=== PATIENT | female | born 1970 | race African-American/Black ===

== ENCOUNTER 2017-01-16 06:45 | Emergency (ER) | payer OTHER ==
[~2017-01-16] VITALS: Ht 167.6 cm; Wt 91.0 kg
[2017-01-16] MEDS ORDERED: KETOROLAC 30MG/ML VIAL IV STA (07:48)
[2017-01-16] MEDS ORDERED: SODIUM CHLORIDE 0.9% 1,000 ML IV ONE (07:48)
[2017-01-16 08:08] LABS: BASOPHILS % 0.2 % (0.0-2.0); HEMATOCRIT. 38.7 % (36.0-48.0); HEMOGLOBIN. 13.5 g/dL (12.0-16.0); LYMPHOCYTES % 8.1 % (20.0-50.0); MEAN CORPUSCULAR HEMOGLOBIN 29.9 pg (28.0-32.0); MEAN CORPUSCULAR VOLUME 85.6 fL (81.0-99.0); MEAN PLATELET VOLUME 7.3 fl (7.4-10.4); MONOCYTES % 4.4 % (2.0-8.0); NEUTROPHILS % 87.3 % (40.0-76.0); PLATELET 305 x1000/uL (130-400); RED BLOOD CELL COUNT 4.52 mill/uL (4.2-5.4); RED CELL DISTRIBUTION WIDTH 14.1 % (11.6-14.6)
[2017-01-16 08:16] LABS: CHLORIDE 98 mEq/L (98-107)
[2017-01-16 08:19] LABS: CARBON DIOXIDE 24 mEq/L (21-32)
[2017-01-16 08:33] LABS: INR 1.1; PROTHROMBIN TIME 11.5 sec
[2017-01-16] MEDS ORDERED: POTASSIUM CHLORIDE 20MEQ TABLET SR PO ONE (09:15)
[2017-01-16 09:50] LABS: KETONES URINE 1+ (NEGATIVE); LEUKOCYTE ESTERASE URINE NEGATIVE (NEGATIVE); NITRITE URINE NEGATIVE (NEGATIVE); OCCULT BLOOD URINE 2+ (NEGATIVE); PROTEIN URINE 2+ (NEGATIVE); SPECIFIC GRAVITY URINE 1.026 (1.005-1.030); UROBILINOGEN URINE 0.2 E.U./dL (0.2-1.0)
[2017-01-16 10:08] LABS: CLARITY URINE HAZY (CLEAR); COLOR URINE AMBER (YELLOW)
[2017-01-16 10:09] LABS: UCG SCREEN NEGATIVE
[2017-01-16] MEDS ORDERED: METRONIDAZOLE 500 MG PREMIX 100 ML IV ONE (12:00)
[2017-01-16] MEDS: LEVOFLOXACIN 750MG PREMIX 150 ML IV ONE ×2 (12:51→14:00)
[2017-01-16] MEDS ORDERED: KETOROLAC 30MG/ML VIAL IV ONE (13:00)
[2017-01-16 13:05] LABS: CHLORIDE 102 mEq/L (98-107)
[2017-01-16 13:11] LABS: CARBON DIOXIDE 25 mEq/L (21-32)
[2017-01-16 14:42] VITALS: BP 103/69
== END 2017-01-16 14:44 | disposition home or self-care (01) ==
LOC: ER 07:54
DX: R10.9 Unspecified abdominal pain (principal); I10 Essential (primary) hypertension; R19.7 Diarrhea, unspecified
CPT/HCPCS: 36415; 74176; 80048; 81001; 81025; 83690; 85025; 85610; 87040; 96361; 96365; 96367; 96375; 96376; 99285; J1885; J1956; J3490; J7030; Z7610